=== PATIENT | female | born 1945 | race Caucasian/White ===

== ENCOUNTER → 2020-09-07 12:26 | Outpatient (CLI) | payer MEDICARE, SELFPAY ==
--- NOTE | 2020-09-07 | DI.RAD.S_ITS ---
PROCEDURE: FL BARIUM SWALLOW W SPEECH INDICATIONS: Follicular lymphoma, unspecified, lymph nodes of m COMPARISON: None. TECHNIQUE: Examination was conducted in conjunction with speech pathology per standard protocol. In the lateral projection, filming was performed of the patient swallowing. AP projection filming may also be performed with patient swallowing. COMPARISON: FINDINGS: Function: The oral preparatory phase appears normal, with proper containment. The subsequent oral propulsive phase, pharyngeal phase, and esophageal phase of swallowing also appear normal with all proffered substances. There was silent laryngeal penetration . No definite tracheal aspiration. [id number] residue. 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 No cervical esophageal webs. No Zenker's diverticulum. No strictures. IMPRESSION: Silent laryngeal penetration No tracheal aspiration. Prominent cricopharyngeal bar Dictated by: Jh Holland M.D. on 09/07/2020 at 17:10 Approved by: Jh Holland M.D. on 09/07/2020 at 17:14
--- NOTE | 2020-09-13 16:40 | ST.SWALLOW ---
Visit Care Team Role Provider Type Virgie Barnett MD Primary Care Provider Non-Staff Specialty: Family Practice Address: [address] [place] [address], [place], [address] Email: Jorge Reaves MD Attending Provider Non-Staff Referring Provider Specialty: Internal Medicine Address: [address] [place] [address], [id number] Email: Modified Barium Swallow Study [employer] Modified Barium Swallow Study Start: 09/07/20 18:18 Freq: Status: Active Protocol: Document 09/07/20 18:18 WILLIE (Rec: 09/07/20 18:19 WILLIE [id number]) Modified Barium Swallow Study Total Time Visit Start Time 13:30 Visit Stop Time 14:15 Total Visit Minutes [address] Jorge Reaves Reason for Referral Follicular lymphoma, unspecified; Dysphagia Setting Setting Outpatient Care Patient Information Identification Type Name,ID Card Patient History The pt is a 75-yr-old female with complaints of swallow difficulty for ~6 mos. The pt feels as if she has congestion in her throat and that her throat tightens, making it difficult to swallow. She was diagnosed with lymphoma in February 2017 and underwent antibody therapy with Rituxan. She stated that upon her first Rituxan treatment, her throat opened and it was easier to swallow. However, symptoms are returning and MBS is ordered for further evaluation of swallow function. Subjective Observations The pt arrived on time and provided case history. She was seated in MBS chair and procedure was explained to her. Patient Positioning Position View Lat-A/P Imaging Lateral View Textures Administered Trials Presented Thin Liquid via Spoon,Thin Liquid via Cup,[place] Liquid via Spoon,[place] Liquid via Cup,Honey Liquid via Spoon, Dysphagia Blenderized Textures ,Regular Textures Oral Phase Source: MBSIMP (TM) (C) Bolus Specific Scoring Grid Lip Closure No Impairment (WNL) Tongue Control During Bolus Hold No Impairment (WNL) Bolus Prep/Mastication No Impairment (WNL) Bolus Transport/Lingual Motion No Impairment (WNL) A/P Lingual Propulsion Delay No Oral Residue WFL Residue Clearing No Impairment (WNL) Nasal Regurgitation No Pharyngeal Phase Source: MBSIMP (TM) (C) Bolus Specific Scoring Grid Delayed Initiation of Pharyngeal Swallow Yes: Occasional Soft Palate Elevation No Impairment (WNL) Tongue Base Strength/Range of Motion No Impairment (WNL) Residue Along the Tongue Base Yes: Trace Clearance of Residue Along Tongue Base No Impairment (WNL) Laryngeal Elevation No Impairment (WNL) Anterior Hyoid Movement Moderate Impairment Epiglottic Range of Motion Moderate Impairment Vallecular Residue Yes Clearance of Vallecular Residue Moderate Impairment Laryngeal Vestibular Closure Minimal Impairment Pharyngeal Stripping Wave Severe Impairment Pharyngeal Contraction No Impairment (WNL) Posterior Pharyngeal Wall Residue Yes: Mild Clearance of Posterior Pharyngeal Wall Mild Impairment Residue Upper Esophageal Sphincter Opening No Impairment (WNL) Residue in the Pyriform Sinuses Yes Clearance of Residue in the Pyriform Mild Impairment Sinuses Esophageal Clearance Upright Position No Impairment (WNL) Pharyngoesophageal Backflow Observed No Additional Pharyngeal Phase Observations Trace laryngeal penetration observed between and during consecutive sips of thin liquid. No tracheal aspiration observed. Large cricopharyngeal bar was observed that did not interfere with bolus flow but may contribute to the pt's sensations of narrowed pharynx. Additionally, upon close video observation, there appears to be an abnormal structure at, or bulging of, the anterior pharyngeal wall below the epiglottis, which does in fact narrow the pharynx. The epiglottis does not invert completely ( horizontal at best) and comes to rest on the posterior pharyngeal wall. This may be caused by reduced hyolaryngeal anterior excursion, and also may be impacted by this apparent bulging. As a result, pharyngeal residue collects in the vallecula and around this structure, increasing the pt's risk of aspiration and need for multiple swallows to clear the pharynx. Referral to ENT is strongly recommended for visual assessment of pharynx. A/P View Textures Administered Trials Presented [place] Liquid via Cup, Dysphagia Blenderized Textures ,Barium Tablet A/P View Observations Additional Observations Bolus deviates to left side during pharyngeal swallow, then filling both pyriform sinuses bilaterally before entering esophagus. Mild slowing of distal esophagus was observed with pudding consistency and tablet but both cleared without need for additional swallows. Clinical Impressions Dysphagia Type Mild-Moderate Pharyngeal Dysphagia Findings The pt presents with mild- moderate pharyngeal dysphagia secondary to incomplete epiglottic inversion, minimal pharyngeal stripping wave, reduced anterior hyolaryngeal excursion, and incomplete closure of the laryngeal vestibule allowing for laryngeal penetration x1 during consecutive sips of thin liquid. Upon close video review, an abnormal structure or bulging of the anterior pharynx below the epiglottis was observed. Pharyngeal residue collects around this structure as well as in the vallecula. AP viewing showed bolus deviation to left side during pharyngeal swallow phase, indicating the structure/bulging may be at the pt's right side. This, as well as a prominent cricopharyngeal bar, does narrow the pharynx, which likely contributes to the pt's sensation and difficulty during swallowing. Referral to ENT for further evaluation of pharyngeal structures is highly recommended, particularly given the pt's history of cancer. Patient Appropriate for Therapy Yes: Depending on ENT findings Recommendations Diet Liquids Order Thin Diet Order Regular Medication Recommendation As Tolerated Aspiration Precautions Recommended Precautions Upright at 90 Degrees,Small Bites/Sips,Double Swallow Additional Precautions Chew foods very well Treatment Plan Additional Therapy Recommendations Prognosis & appropriateness for therapy are dependent on ENT findings Recommended Referrals ENT Consult Compensatory Strategies Recommendations Sitting Upright (90 deg), Double Swallow,Small Bites and Sips
== END ==
PROVIDERS: PCP Family Medicine; Referring Provider Internal Medicine; Visit Provider Internal Medicine
DX: C82.98 Follicular lymphoma, unspecified, lymph nodes of multiple sites (principal)
CPT/HCPCS: 74230; 92611